=== PATIENT | female | born 1965 | race African-American/Black ===

== ENCOUNTER 2020-01-01 15:26 | Emergency (ER) | payer MEDICAID ==
[~2020-01-01] VITALS: Ht 152.4 cm; Wt 66.0 kg
[2020-01-01 15:40] VITALS: BP 182/81
[2020-01-01] MEDS ORDERED: CLONIDINE 0.1MG TABLET PO ONE (17:00)
[2020-01-01] MEDS ORDERED: ACETAMINOPHEN 325MG TABLET PO ONE (17:15)
== END 2020-01-01 18:00 | disposition home or self-care (01) ==
LOC: ER 15:26
DX: I10 Essential (primary) hypertension (principal); R51.9 Headache, unspecified; Z76.0 Encounter for issue of repeat prescription; Z88.1 Allergy status to other antibiotic agents; Z98.890 Other specified postprocedural states
CPT/HCPCS: 99283